=== PATIENT | female | born 1990 | race Asian ===

== ENCOUNTER 2023-10-12 15:13 | Outpatient (CLI) | payer OTHER, SELFPAY ==
[2023-10-12 21:46] LABS: Abs Immature Grans 0.01 10^3/uL (0.0-0.06); Absolute Basophil Count 0.03 10^3/uL (0.0-0.2); Absolute Eosinophil Count 0.28 10^3/uL (0.0-0.7); Absolute Lymphocyte Count 2.47 10^3/uL (1.2-3.4); Absolute Monocyte Count 0.37 10^3/uL (0.1-0.8); Absolute Neutrophil Count 2.53 10^3/uL (1.2-6.7); Basophils % 0.5 %; Eosinophils % 4.9 %; HCT 38.2 % (36.0-46.0); HGB 12.5 g/dL (11.2-15.7); Immature Grans % 0.2 %; Lymphocytes % 43.4 %; MCH 30.3 pg (27.0-33.0); MCHC 32.7 % (32.0-36.0); MCV 93 fL (80-95); MPV 10.9 fL (8.0-11.0); Monocytes % 6.5 %; Neutrophils % 44.5 %; Platelet Count 240 10^3/uL (130-400); RBC 4.13 10^6/uL (3.93-5.22); RDW 12.2 % (11.7-14.6); RDW-SD 41.9 fL; WBC 5.69 10^3/uL (4.4-10.8)
[2023-10-12 22:10] LABS: ALT 22 U/L (14-59); AST 14 U/L (15-37); Albumin 3.8 g/dL (3.4-5.0); Alkaline Phosphatase 39 U/L (46-116); Anion Gap 10.5 mmol/L (3-11); BUN 8 mg/dL (7-18); Bilirubin, Total 0.3 mg/dL (0.2-1.0); CO2 24.5 mmol/L (21.0-32.0); CREATININE 0.8 mg/dL (0.55-1.02); Calcium 8.5 mg/dL (8.5-10.1); Calculated LDL 105 mg/dL (<100); Chloride 105 mmol/L (98-107); Cholesterol 185 mg/dL (<200); Estimated GFR 99.09 (mL/min/1.73m2); Glucose 102 mg/dL (74-106); HDL Cholesterol 69 mg/dL (40-60); Potassium 3.5 mmol/L (3.5-5.1); Sodium 140 mmol/L (136-145); TSH (W/Ref FT4) 1.49 uIU/mL (0.36-3.74); Total Protein 7.2 g/dL (6.4-8.2); Triglyceride 55 mg/dL (<150)
[2023-10-13 19:34] LABS: HIV-1/2 Ag & Ab Screen Negative (Negative)
[2023-10-13 19:41] LABS: Hepatitis C Ab w Rflx HCV PCR Negative (Negative)
== END 2023-10-12 22:00 | disposition home or self-care (01) ==
LOC: LBO 10-13 15:14
PROVIDERS: PCP Nurse Practitioner; Visit Provider Nurse Practitioner
DX: Z13.220 Encounter for screening for lipoid disorders (principal); F41.9 Anxiety disorder, unspecified; Z11.59 Encounter for screening for other viral diseases
CPT/HCPCS: 80053; 80061; 86803; 87389; 84443; 85025

== ENCOUNTER 2024-02-20 09:40 | Outpatient (REF) | payer OTHER, SELFPAY ==
--- NOTE | 2024-02-20 09:00 | PAPFT_PTH ---
PATIENT: Justine Pinedo LOC: [facility] U#:[id number] AGE/SX: 33/F ROOM: RE02/20/[address]: Portia Mercer APRN : 1990 BED: DIS: 02/20/2024 SPEC #: [id number] RECD: 02/20/24 18:27 STATUS: FRANDY REXochilt #: [id number] TALIA: 02/20/24 09:[address]: Portia Mercer DEPT: [facility] Cytology RECD BY: Sarika Montalvo Tissues: 1 - CX/ENDOCX FOR PAP SMEARS Procedures: PAP THIN PREP/[facility] Screening HPV DNA PROBE Comments: [id number] (HPV 16 & 18/45)
== END 2024-02-20 09:41 | disposition home or self-care (01) ==
LOC: LBN 09:40
PROVIDERS: PCP Nurse Practitioner; Visit Provider Nurse Practitioner
DX: Z12.4 Encounter for screening for malignant neoplasm of cervix (principal)
CPT/HCPCS: 88142; 87624